=== PATIENT | male | born 1950 | race African-American/Black ===

== ENCOUNTER 2017-11-15 07:56 | Emergency (ER) | payer OTHER ==
[~2017-11-15] VITALS: Ht 177.8 cm; Wt 82.0 kg
[2017-11-15 08:13] VITALS: BP 138/95
== END 2017-11-15 11:06 | disposition home or self-care (01) ==
LOC: ER 08:37
DX: B34.9 Viral infection, unspecified (principal); M19.90 Unspecified osteoarthritis, unspecified site
CPT/HCPCS: 99281; 99283

== ENCOUNTER 2019-11-08 18:16 | Emergency (ER) | payer MEDICARE, OTHER ==
[~2019-11-08] VITALS: Ht 180.3 cm; Wt 79.0 kg
[2019-11-08 21:44] VITALS: BP 124/72
== END 2019-11-08 21:45 | disposition home or self-care (01) ==
LOC: ER 18:16
DX: N48.1 Balanitis (principal); M19.90 Unspecified osteoarthritis, unspecified site; M54.30 Sciatica, unspecified side
CPT/HCPCS: 99282